=== PATIENT | male | born 1990 | race Caucasian/White ===

== ENCOUNTER 2017-01-16 11:50 | Emergency (ER) | payer MEDICAID, OTHER ==
[~2017-01-16] VITALS: Ht 165.1 cm; Wt 77.6 kg
[2017-01-16 11:53] VITALS: BP 136/80
[2017-01-16] MEDS ORDERED: DIPH,PERTUSS(ACELL),TET VAC/PF 0.5 ML IM-VACC ONE ×2 (12:20→12:30)
[2017-01-16] MEDS ORDERED: FAMOTIDINE 20 MG TABLET ONE (12:20)
[2017-01-16] MEDS ORDERED: FAMOTIDINE 20 MG TABLET PO ONE (12:30)
== END 2017-01-16 13:11 ==
LOC: ED 12:40
DX: T63.301A Toxic effect of unspecified spider venom, accidental (unintentional), initial encounter (principal); J45.909 Unspecified asthma, uncomplicated; Y92.89 Other specified places as the place of occurrence of the external cause
CPT/HCPCS: 90471; 90715; 99283; Q0177

== ENCOUNTER 2017-02-10 13:51 | Emergency (ER) | payer MEDICAID, OTHER ==
[~2017-02-10] VITALS: Ht 165.1 cm; Wt 82.0 kg
[2017-02-10 13:59] VITALS: BP 114/70
== END 2017-02-10 15:59 | disposition home or self-care (01) ==
LOC: ED 15:53
DX: K02.9 Dental caries, unspecified (principal); J20.5 Acute bronchitis due to respiratory syncytial virus; J45.909 Unspecified asthma, uncomplicated; F31.9 Bipolar disorder, unspecified; F17.210 Nicotine dependence, cigarettes, uncomplicated
CPT/HCPCS: 71010; 99283

== ENCOUNTER 2019-09-20 22:06 | Emergency (ER) | payer MEDICAID ==
[~2019-09-20] VITALS: Ht 165.1 cm; Wt 75.0 kg
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
[2019-09-20] MEDS ORDERED: LORazepam 2 MG/ML, 1ML ONE (22:47)
[2019-09-20] MEDS ORDERED: SODIUM CHLORIDE 0.9% 1,000ML IVBOLUS ONE (23:00)
[2019-09-20] MEDS ORDERED: LORazepam 2 MG/ML, 1ML IVPush ONE (23:00)
--- NOTE | 2019-09-20 23:03 | NUR ---
IV ACCESS OBTAINED AND PT MEDICATED PER JUL. PT REMAINS VERY AGITATED AND RESTLESS BUT IS COOPORATIVE WITH STAFF. S/O AT BEDSIDE TO HELP CALM. IV FLUIDS INFUSING. CALL LIGHT IN REACH.
--- NOTE | 2019-09-20 23:30 | NUR ---
Pt dozing intermittently. States he is feeling a little better. VS improved. ERP in to recheck.
[2019-09-20 23:46] VITALS: BP 137/95
== END 2019-09-21 00:05 | disposition home or self-care (01) ==
LOC: ED 23:00
DX: F15.129 Other stimulant abuse with intoxication, unspecified (principal); F41.1 Generalized anxiety disorder; J45.909 Unspecified asthma, uncomplicated; F17.200 Nicotine dependence, unspecified, uncomplicated; Z72.9 Problem related to lifestyle, unspecified
CPT/HCPCS: 96374; 99283; J2060; J7030; 96361

== ENCOUNTER 2020-10-15 12:41 | Emergency (ER) | payer MEDICAID ==
[~2020-10-15] VITALS: Ht 172.7 cm; Wt 74.0 kg
--- NOTE | 2020-10-15 12:44 | NUR ---
Asim, psych PRODUCT TESTER at bedside for eval. Per Asim to finish eval and then be medically assessed. Per ems, VSS. OROZCO.
[2020-10-15 12:47] VITALS: BP 139/91
[2020-10-15] MEDS ORDERED: NEOSPORIN OINT. PKT 1 PACKET ONE (13:17)
--- NOTE | 2020-10-15 13:46 | NUR ---
pt educated on discharge and follow-uup, verbalized understanding. ambulatory to discharge with steady gait.
== END 2020-10-15 13:48 | disposition home or self-care (01) ==
LOC: ED 13:40
DX: S50.812A Abrasion of left forearm, initial encounter (principal); F23 Brief psychotic disorder; J45.909 Unspecified asthma, uncomplicated; F20.9 Schizophrenia, unspecified; X78.9XXA Intentional self-harm by unspecified sharp object, initial encounter; Y93.89 Activity, other specified; Y92.89 Other specified places as the place of occurrence of the external cause; Y99.8 Other external cause status
CPT/HCPCS: 99283

== ENCOUNTER 2020-11-02 18:29 | Emergency (ER) | payer MEDICAID ==
[~2020-11-02] VITALS: Ht 165.1 cm; Wt 70.0 kg
[2020-11-02 18:38] VITALS: BP 151/84
[2020-11-02] MEDS ORDERED: ZIPRASIDONE 20 MG INJ IM ONE ×2 (19:30→19:46)
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
== END 2020-11-02 20:02 | disposition home or self-care (01) ==
LOC: ED 19:30
DX: F15.150 Other stimulant abuse with stimulant-induced psychotic disorder with delusions (principal); R45.850 Homicidal ideations; R00.0 Tachycardia, unspecified; J45.909 Unspecified asthma, uncomplicated
CPT/HCPCS: 99283